=== PATIENT | female | born 1955 | race Caucasian/White ===

== ENCOUNTER 2017-06-30 16:00 | Emergency (ER) | payer OTHER ==
[~2017-06-30] VITALS: Ht 162.6 cm; Wt 70.3 kg
[~2017-06-30 16:00] MED LIST: KLONOPIN0.5 M1 PO; LAMICTAL150 M1 PO; MELATONIN5 M1 PO; MULTIVITAMIN PO; PERCOCET 5/31 TABLET PO; PRAVACHOL40 MG PO; PRILOSEC40 MG PO; PROZAC10 MG PO; TOPIRAMATE50 MG PO; VITAMIN D PO; ZOFRAN ODT4 MG PO
[2017-06-30] MEDS ORDERED: CLONAZEPAM1 MG PO (16:48)
[2017-06-30] MEDS ORDERED: ATORVASTATIN CA40 MG PO (16:49)
[2017-06-30] MEDS ORDERED: ERGOCALCIF50000 UNIT PO (16:49)
[2017-06-30] MEDS ORDERED: GABAPENTIN100 MG PO (16:49)
[2017-06-30] MEDS ORDERED: LATUDA40 MG PO (16:50)
[2017-06-30] MEDS ORDERED: OMEPRAZOLE20 M2 PO (16:50)
[2017-06-30] MEDS ORDERED: ALENDRONATE SOD70 MG PO (16:50)
[2017-06-30] MEDS ORDERED: LAMICTAL200 MG PO (16:50)
[2017-06-30] MEDS ORDERED: VIMPAT150 MG PO (16:51)
[2017-06-30] MEDS ORDERED: PREDNISONE20 MG PO (18:15)
[2017-06-30] MEDS ORDERED: LIDODERM 5% P1 PATCH TD (18:15)
[2017-06-30] MEDS ORDERED: FLEXERIL10 MG PO (18:15)
[2017-06-30 18:35] VITALS: BP 113/85
== END 2017-06-30 18:37 | disposition home or self-care (01) ==
LOC: EME 16:00
DX: M54.5 Low back pain (principal); M51.34 Other intervertebral disc degeneration, thoracic region; M51.37 Other intervertebral disc degeneration, lumbosacral region; M85.88 Other specified disorders of bone density and structure, other site; E78.00 Pure hypercholesterolemia, unspecified
CPT/HCPCS: 72100; 99281; 99284; J1885

== ENCOUNTER → 2018-04-13 | Outpatient (CLI) | payer OTHER ==
[~2018-04-13] VITALS: Ht 160 cm; Wt 65.9 kg
[~2018-04-13] MED LIST changes: +ALENDRONATE SOD70 MG PO; +ANTIVERT25 MG PO; +ATORVASTATIN CA40 MG PO; +CLONAZEPAM1 MG PO; +ERGOCALCIF50000 UNIT PO; +FLEXERIL10 MG PO; +GABAPENTIN100 MG PO; +LAMICTAL200 MG PO; +LATUDA40 MG PO; +LIDODERM 5% P1 PATCH TD; +OMEPRAZOLE20 M2 PO; +PREDNISONE20 MG PO; +VIMPAT150 MG PO
[2018-04-13 11:39] VITALS: BP 131/83
== END | disposition home or self-care (01) ==
LOC: IVINF 11:03
DX: M81.0 Age-related osteoporosis without current pathological fracture (principal); E55.9 Vitamin D deficiency, unspecified
CPT/HCPCS: 96365; J3489